=== PATIENT | female | born 1975 | race Two or more races ===

== ENCOUNTER 2021-02-12 07:58 | Outpatient (AMBR) | payer MEDICAID, SELFPAY ==
--- NOTE | 2021-02-09 10:08 | PTNOTE_ITS ---
PT OP Initial Eval Patient Information Visit Reasons: back pain Medical Diagnosis: M47.26 Treatment Dx #1: LBp with radiculopathy Start of Care: 02/09/21 Date of Onset: 2 yrs ago Initial Assessment Subjective Pt is 45 yr old [place] female who reports long Hx of LBP for 8-10 yrs and about 2 yrs ago the pain started radiated down the R LE to the ankle. 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 Every few months she gets an injection with lessens the pain for a few days after. Pt denies numbness and tingling. Pain level today is 6/10 in the R LE and LBP is 7-8/10. PMH: cholecystectomy Imaging: MRI of L/s in EMR Pt goal: to lessen the LBP and R LE pain Objective Trunk ArOM: B SB 18 with pain R>L Extension: 20% with pain around L2-5 centrally Flexion: 8 from floor with LBP B rotation: 50% with LBP R SLR ROM: 45 deg with posterior LE pain. L SLR: negative LE strength: B hamstrings: 4-/5 Quads 4-/5 Hip abd/add 4-/5 BEST's: LBP TTP: moderate L paraspinals L2-5 and diffusely L5-S1 Assessment Pt presents with trunk flexion and extension sensitivity and overlying myofascial pain and spasming around L2-5 centrally with high tissue irritability. These findings are consistent with MRI that reveals L5-S1 3 mm central lumbar disc bulge, L4-L5 3 mm central lumbar disc bulge. Pt has positive L LE neural tension. Pt requires skilled therapy in order to decrease pain and improve standing tolerance and has fair rehab potential. Short Term and Non Destructive Evaluation Manager Goals 1. Ind with HEP 2. Improved standing tolerance to 30 minutes with <=4/10 LBP 3. Pt will improve ambulatory distance to 2 [address] 4. Pt will squat x15 with lumbar lordosis and no increase in LBP Treatment Plan 1. Manual therapy 2. Therex 3. Modalities as indicated, moist heat, ice, estim Frequency and Duration 2x a week for 6 weeks Certification Dates: 02/09/21 to 05/12/21 Office Procedures PT Procedures PT Date of Service: 02/09/21 OP PT Eval Mod Complex 30 minutes: Yes
--- NOTE | 2021-02-12 08:47 | PT.ODAYNRPT ---
PT Outpatient Daily Note Date of Service: 02/12/21 OP Daily Note Visit Reasons: back pain Outpatient Physical Therapy Treatment Date: 02/12/21 Subjective: Same as time of eval Objective: See f/S for therex MT: STM L/S paraspinals x7' Mechanical traction L/S x7' Assessment: Good demo of L/s stabilization therex today and manual therapy with low tissue irritability. Pt has decreased core stability with L/s rotation. Plan: Request additional visits in order to Continue per POC Length of Time (minutes) of Treatment: 30 Minutes Office Procedures PT Procedures PT Date of Service: 02/12/21 Therapeutic Exercise 30 minutes: Yes PT Procedures PT Date of Service: 02/09/21 OP PT Eval Mod Complex 30 minutes: Yes
== END 2021-03-04 23:59 | disposition home or self-care (01) ==
PROVIDERS: PCP Physician Assistant; Referring Provider Physician Assistant; Visit Provider Chiropractor
DX: M47.26 Other spondylosis with radiculopathy, lumbar region (principal); M54.5 Low back pain
CPT/HCPCS: 97110; 97162

== ENCOUNTER → 2024-12-27 | Outpatient (CLI) | payer MEDICAID, SELFPAY ==
--- NOTE | 2024-12-27 13:09 | XR_ITS ---
Examination: Foot, left, 3 views Technique: AP, oblique, lateral views foot, 3 views Date and time of exam: December 27, 2024 1420 hours INDICATIONS: Right foot pain beginning 4 months ago. FINDINGS: Mild bunion deformity. Mild osteoarthritis first metatarsophalangeal joint No fracture 2 mm plantar bony calcaneal spur IMPRESSION: Mild bunion deformity Mild osteoarthritis first metatarsophalangeal joint
== END | disposition home or self-care (01) ==
LOC: CDIM 12:46
PROVIDERS: PCP Family Medicine; Referring Provider Family Medicine; Visit Provider Family Medicine
DX: M21.612 Bunion of left foot (principal); M19.072 Primary osteoarthritis, left ankle and foot
CPT/HCPCS: 73630

== ENCOUNTER → 2025-01-08 | Outpatient (CLI) | payer MEDICAID, SELFPAY ==
--- NOTE | 2025-01-08 | XR_ITS ---
Examination: Knee, right , 3 views Technique: Knee AP, lateral, oblique 3 views Date and time of exam: [place] 25 1252 hours INDICATIONS: Right knee pain several years. FINDINGS: Moderate osteopenia. Moderate tricompartment osteoarthritis Small knee effusion No fracture IMPRESSION: Moderate tricompartment osteoarthritis
== END | disposition home or self-care (01) ==
LOC: CDIM 11:53
PROVIDERS: PCP Physician Assistant; Referring Provider Family Medicine; Visit Provider Family Medicine
DX: M17.11 Unilateral primary osteoarthritis, right knee (principal)
CPT/HCPCS: 73562

== ENCOUNTER → 2025-01-14 | Outpatient (CLI) | payer MEDICAID, SELFPAY ==
--- NOTE | 2025-01-14 14:00 | XR_ITS ---
Examination: Thyroid sonography complete TECHNIQUE: Grayscale sonographic images thyroid lobes Date and time: January 14, 2025 1414 hours INDICATIONS: Thyroid sonogram June 06, 2023 upper pole right thyroid nodule 6 mm upper pole left thyroid nodule 4 mm FINDINGS: Right thyroid 4.9 cm Upper pole nodule 4 x 3 mm Upper pole cyst 3 x 3 mm Midpole cyst 7 x 5 mm Left thyroid 4.4 cm Midpole nodule 5 x 4 mm Lower pole cyst 5 x 3 mm IMPRESSION: Small bilateral thyroid nodules
== END | disposition home or self-care (01) ==
LOC: CDIM 13:58
PROVIDERS: PCP Family Medicine; Referring Provider Family Medicine; Visit Provider Family Medicine
DX: E04.2 Nontoxic multinodular goiter (principal)
CPT/HCPCS: 76536

== ENCOUNTER → 2025-01-16 | Outpatient (CLI) | payer MEDICAID, SELFPAY ==
--- NOTE | 2025-01-16 11:00 | XR_ITS ---
Examination: Ultrasound soft tissue extremity right axilla TECHNIQUE: Grayscale sonographic images soft tissue right axilla INDICATIONS: Palpable lumps in the right axilla with pain 6 months Date and time: January 16, 2025 1105 hours FINDINGS: Right axillary lymph nodes 17 x 22 mm, 21 x 25 mm with smaller lymph nodes IMPRESSION: Multiple right axillary lymph nodes, consider right breast sonography, CT chest with intravenous contrast follow-up
== END | disposition home or self-care (01) ==
PROVIDERS: PCP Surgery; Referring Provider Surgery; Visit Provider Surgery
DX: N63.31 Unspecified lump in axillary tail of the right breast (principal)
CPT/HCPCS: 76882

== ENCOUNTER → 2025-03-26 | Outpatient (CLI) | payer MEDICAID, SELFPAY ==
--- NOTE | 2025-03-26 14:00 | XR_ITS ---
Examination: Breast ultrasound, unilateral, right Date and time of exam: March 26, 2025 1405 hours INDICATIONS: Multiple right axillary lymph nodes and 10:00 nodule right breast on ultrasound June 07, 2022, multiple right axillary lymph nodes on ultrasound soft tissue axial January 16, 2025 Technique: Real-time euceda scale ultrasonographic imaging performed right breast including all 4 quadrants as well as nipple retroareolar and axillary region. Findings: No cystic or solid masses Right axillary lymph node with possible mild architectural distortion 2.4 x 1.3 x 1.8 cm IMPRESSION: BI-RADS Category 3: Probably benign findings One additional 6 month right breast axillary sonography recommended
== END | disposition home or self-care (01) ==
LOC: CDIM 13:43
PROVIDERS: PCP Family Medicine; Referring Provider Family Medicine; Visit Provider Family Medicine
DX: R59.0 Localized enlarged lymph nodes (principal)
CPT/HCPCS: 76641

== ENCOUNTER → 2025-04-22 | Outpatient (CLI) | payer MEDICAID, SELFPAY ==
--- NOTE | 2025-04-22 11:00 | XR_ITS ---
Examination: CT chest with intravenous contrast 2-D sagittal and coronal reconstructions Exam date and time: April 22, 2025 1131 hours INDICATIONS: Right breast sonogram March 26, 2025 architectural distortion right axillary lymph node 2.4 cm, coughing one year CTDI:vol (mGy) 11.2 DLP: (mGycm) 378 Technique: Multiple axial sections of the thorax have been obtained. Sections have been obtained, 3 mm slice thickness. Mediastinal and lung density settings have been obtained. Intravenous contrast administered, 60 cc Isovue-370. 2-D sagittal, coronal images obtained. Low dose protocols were performed. One or more of the following dose reduction techniques were used; automated exposure control, adjustment of the mA and/or KV according to patient size, use of iterative reconstruction technique. Findings: No thoracic aortic aneurysm dilatation or dissection No pulmonary artery filling defects No paratracheal tracheobronchial or bronchopulmonary adenopathy No pathologic axillary lymph nodes 4 mm pulmonary nodule left upper lobe image 142 4 mm soft pulmonary nodule right midlung image 182 5 mm pulmonary nodule right lower lobe image 186 No pneumonia or pulmonary edema No visualized liver or splenic lesions Absent gallbladder No pancreatic or adrenal mass No hydronephrosis Mild thoracic spondylosis IMPRESSION: No mediastinal or axillary pathologic lymphadenopathy Noncalcified pulmonary nodules as above, with this study as baseline recommend 6 month follow-up CT chest without contrast
== END | disposition home or self-care (01) ==
PROVIDERS: Referring Provider Family Medicine; Visit Provider Family Medicine
DX: R91.8 Other nonspecific abnormal finding of lung field (principal)
CPT/HCPCS: 71260; A4649; Q9967